=== PATIENT | male | born 1955 | race Caucasian/White ===

== ENCOUNTER 2025-05-17 14:22 | Emergency (ER) | payer OTHER ==
[~2025-05-17] VITALS: Ht 175.2 cm; Wt 127.9 kg
[2025-05-17 15:13] LABS: BASO # 0.0 10*3/uL (0.0-0.1); BASO % 0.5 % (0.0-1.0); EOS # 0.7 10*3/uL (0.0-0.4); EOS % 9.8 % (1.0-4.0); MEAN CELL VOLUME 91.8 fl (80.0-94.0); MEAN CORPUSCULAR HGB 29.4 pg (27.0-31.0); MEAN PLATELET VOLUME 10.1 fl (9.6-12.3); MONO # 0.5 10*3/uL (0.1-1.0); MONO % 6.4 % (3.0-9.0); NEUT # 4.2 10*3/uL (2.3-7.9); NEUT % 57.3 % (47.0-73.0); NUCLEATED RED BLOOD CELL 0.0 % (0.0-0.0); NUCLEATED RED BLOOD CELL 0.0 10*3/uL (0.0-0.0); PLATELET COUNT AUTOMATED 184 10*3/uL (130-400); RED CELL DISTRI WIDTH 13.1 % (0-14.5)
[2025-05-17 15:34] LABS: BUN 16 mg/dl (9-23); CPK 34 U/L (34-171)
[2025-05-17 17:32] LABS: BILIRUBIN Negative (Negative); BLOOD Negative (Negative); CLARITY Clear (Clear); COLOR Yellow (Yellow); KETONE Negative (Negative); LEUKO ESTERASE Negative (Negative); NITRITE Negative (Negative); PH 5.5 (4.5-8.0); SPECIFIC GRAVITY 1.020 (1.001-1.030); UROBILINOGEN 1.0 E.U./dl (0.0-1.0)
[2025-05-17 17:42] LABS: MUCOUS TRACE; WBC 0-2 wbc/hpf (0-5)
== END 2025-05-17 18:17 | disposition home or self-care (01) ==
LOC: ED 14:22
PROVIDERS: Emergency Medicine
DX: S30.0XXA Contusion of lower back and pelvis, initial encounter (principal); R06.02 Shortness of breath; M54.12 Radiculopathy, cervical region; G89.29 Other chronic pain; M25.561 Pain in right knee; I10 Essential (primary) hypertension; E78.5 Hyperlipidemia, unspecified; E11.9 Type 2 diabetes mellitus without complications; I25.2 Old myocardial infarction; R51.9 Headache, unspecified; M54.2 Cervicalgia; R20.0 Anesthesia of skin; R20.2 Paresthesia of skin; F17.200 Nicotine dependence, unspecified, uncomplicated; X58.XXXA Exposure to other specified factors, initial encounter; Y93.89 Activity, other specified; Y92.89 Other specified places as the place of occurrence of the external cause; Y99.8 Other external cause status

== ENCOUNTER → 2025-05-17 | Outpatient (CLI) | payer MEDICARE ==
[~2025-05-17] MED LIST: CLINDAMYCIN HC300 MG PO
== END | disposition home or self-care (01) ==
LOC: RESCLI 13:03
PROVIDERS: ATTEND Student in an Organized Health Care Education/Training Program
DX: R07.9 Chest pain, unspecified (principal); E11.65 Type 2 diabetes mellitus with hyperglycemia; R53.81 Other malaise; Z98.890 Other specified postprocedural states; F17.210 Nicotine dependence, cigarettes, uncomplicated; Z88.0 Allergy status to penicillin; Z90.49 Acquired absence of other specified parts of digestive tract; Z79.899 Other long term (current) drug therapy

== ENCOUNTER 2025-05-24 13:56 | Emergency (ER) | payer OTHER ==
[~2025-05-24] VITALS: Ht 175.2 cm; Wt 81.6 kg
[2025-05-24 14:45] LABS: BASO # 0.1 10*3/uL (0.0-0.1); BASO % 0.6 % (0.0-1.0); EOS # 0.7 10*3/uL (0.0-0.4); EOS % 8.0 % (1.0-4.0); MEAN CELL VOLUME 90.8 fl (80.0-94.0); MEAN CORPUSCULAR HGB 29.2 pg (27.0-31.0); MEAN PLATELET VOLUME 10.1 fl (9.6-12.3); MONO # 0.5 10*3/uL (0.1-1.0); MONO % 6.4 % (3.0-9.0); NEUT # 4.6 10*3/uL (2.3-7.9); NEUT % 56.0 % (47.0-73.0); NUCLEATED RED BLOOD CELL 0.0 % (0.0-0.0); NUCLEATED RED BLOOD CELL 0.0 10*3/uL (0.0-0.0); PLATELET COUNT AUTOMATED 221 10*3/uL (130-400); RED CELL DISTRI WIDTH 12.6 % (0-14.5)
[2025-05-24 15:05] LABS: BUN 14 mg/dl (9-23)
[2025-05-24] MEDS ORDERED: INSULIN REGULAR, HUMAN 1 UNIT/0.01 ML SC ONE (15:25)
[2025-05-24] MEDS ORDERED: CLINDAMYCIN HC300 MG PO (16:07)
[2025-05-24] MEDS ORDERED: Bacitracin Zinc 14 GM TUBE T ONE (16:10)
== END 2025-05-24 16:21 | disposition home or self-care (01) ==
LOC: ED 13:56
PROVIDERS: Nurse Practitioner Family
DX: S80.862A Insect bite (nonvenomous), left lower leg, initial encounter (principal); L08.9 Local infection of the skin and subcutaneous tissue, unspecified; Z88.0 Allergy status to penicillin; W57.XXXA Bitten or stung by nonvenomous insect and other nonvenomous arthropods, initial encounter; Y93.89 Activity, other specified; Y92.89 Other specified places as the place of occurrence of the external cause; Y99.8 Other external cause status

== ENCOUNTER → 2025-06-07 | Outpatient (CLI) | payer OTHER | END | disposition home or self-care (01) | LOC: RESCLI 14:40 → LAB 14:40 | PROVIDERS: ATTEND Internal Medicine | DX: M25.469 Effusion, unspecified knee (principal); E11.9 Type 2 diabetes mellitus without complications; E11.65 Type 2 diabetes mellitus with hyperglycemia; E11.69 Type 2 diabetes mellitus with other specified complication; R53.81 Other malaise; I25.119 Atherosclerotic heart disease of native coronary artery with unspecified angina pectoris; Z79.899 Other long term (current) drug therapy ==

== ENCOUNTER → 2025-06-21 | Outpatient (CLI) | payer OTHER | END | disposition home or self-care (01) | LOC: RESCLI 01:26 | PROVIDERS: ATTEND Student in an Organized Health Care Education/Training Program | DX: E11.65 Type 2 diabetes mellitus with hyperglycemia (principal); R53.81 Other malaise; E78.00 Pure hypercholesterolemia, unspecified; Z79.899 Other long term (current) drug therapy ==

== ENCOUNTER → 2025-07-01 | Outpatient (CLI) | payer OTHER | END | disposition home or self-care (01) | LOC: US 10:26 | PROVIDERS: ATTEND Internal Medicine | DX: M25.462 Effusion, left knee (principal); M25.461 Effusion, right knee; R05.9 Cough, unspecified; R63.1 Polydipsia; M25.562 Pain in left knee; M25.561 Pain in right knee; E11.9 Type 2 diabetes mellitus without complications; E78.00 Pure hypercholesterolemia, unspecified; R53.81 Other malaise ==